=== PATIENT | female | born 1950 | race Asian ===

== ENCOUNTER 2016-10-19 06:05 | Day surgery (SDC) | payer OTHER ==
[~2016-10-19] VITALS: Ht 154.9 cm; Wt 44.0 kg
[2016-10-19 06:53] VITALS: O2SAT 97
[2016-10-19] MEDS ORDERED: LR 1,000 ML IV SCH (08:31)
[2016-10-19] MEDS ORDERED: MORPHINE 4 MG/ML INJ. SYRINGE IVP PRN (08:45)
[2016-10-19] MEDS ORDERED: MEPERIDINE HCL/PF 25 MG/ML DISP.SYRIN IVP PRN ×2 (08:45)
[2016-10-19] MEDS ORDERED: ePHEDrine sulfate 50 MG/ML VIAL IVP PRN (08:45)
[2016-10-19] MEDS ORDERED: HYDROmorphone 1 MG INJ. 1 MG/ML AMPUL IVP PRN (08:45)
[2016-10-19] MEDS ORDERED: HYDROcodone/ACETAMIN 5-325 MG TAB (NORCO/ VICODIN) PO PRN (08:45)
[2016-10-19] MEDS ORDERED: ONDANSETRON HCL 4 MG/2 ML VIAL IVP PRN ×2 (08:45)
[2016-10-19] MEDS ORDERED: HYDROmorphone 2 MG/ML VIAL IVP PRN (08:45)
[2016-10-19 10:47] VITALS: BP 126/57; PULSE 72; RESP 16
[2016-10-19] MEDS ORDERED: fentaNYL CITRATE 250 MCG/5 ML AMP ONE (14:00)
[2016-10-19] MEDS ORDERED: PROPOFOL 200MG/ 20ML VIAL (DIPRIVAN) IV ONE (14:00)
[2016-10-19] MEDS ORDERED: MIDAZOLAM HCL 5 MG/5 ML VIAL ONE (14:00)
[2016-10-19] MEDS ORDERED: SEVOFLURANE 15 MIN GAS INH ONE (14:00)
[2016-10-19] MEDS ORDERED: KETOROLAC TROMETHAMINE 30 MG VIAL ONE (14:00)
[2016-10-19] MEDS ORDERED: ONDANSETRON HCL 4 MG/2 ML VIAL ONE (14:00)
[2016-10-19] MEDS ORDERED: LR 1,000 ML IV.SOLN IV ONE (14:00)
[2016-10-19] MEDS ORDERED: NS IRRIG SOLN 1000 ML IR ONE (14:00)
[2016-10-19] MEDS ORDERED: ROCURONIUM BROMIDE 10 MG/ML (ZEMURON) ONE (14:00)
== END 2016-10-19 11:00 | disposition home or self-care (01) ==
LOC: SDS 06:05 → SMU 06:45 → SDS 11:00
PROVIDERS: ATTEND Surgery
DX: K64.4 Residual hemorrhoidal skin tags (principal); K64.8 Other hemorrhoids
CPT/HCPCS: 46255; 88304; J1885; J2250; J2405; J2704; J3010; J7120